=== PATIENT | male | born 1990 | race Hispanic/Latino ===

== ENCOUNTER 2019-11-16 15:13 | Emergency (ER) | payer SELFPAY ==
[2019-11-16 15:24] VITALS: BP 150/84
== END 2019-11-16 18:09 | disposition home or self-care (01) ==
LOC: ED 15:13
DX: S09.90XA Unspecified injury of head, initial encounter (principal); F17.200 Nicotine dependence, unspecified, uncomplicated; W22.8XXA Striking against or struck by other objects, initial encounter; Y93.89 Activity, other specified; Y92.89 Other specified places as the place of occurrence of the external cause; Y99.8 Other external cause status
CPT/HCPCS: 70450; 70486; 72125; 96372; 99283; J2270; J3010